=== PATIENT | male | born 1980 | race American Indian/Alaskan Native ===

== ENCOUNTER 2018-02-09 14:21 | Inpatient (IN) | payer OTHER ==
[2018-02-09] MEDS ORDERED: NACL 0.9% 500 ML 500 ML IV ONE (14:33)
[2018-02-09] MEDS ORDERED: NACL 0.9% 1000 ML 2,000 ML ONE (14:41)
[2018-02-09 15:07] LABS: INR 1.05 (0.87-1.13)
[2018-02-09] MEDS ORDERED: TYLENOL ONE (15:10)
[2018-02-09 15:12] LABS: Alanine Aminotransferase 12 units/L (7-56); Albumin 3.8 g/dL (3.9-5); BUN/Creatinine Ratio 15; Blood Urea Nitrogen 17 mg/dL (9-20); Calcium 8.7 mg/dL (8.4-10.2); Hemolysis Index 18
[2018-02-09] MEDS ORDERED: TYLENOL PO ONE ×2 (15:18→20:27)
[2018-02-09] MEDS ORDERED: NACL 0.9% 1000 ML 1,000 ML IV ONE (15:19)
[2018-02-09] MEDS ORDERED: ZOFRAN IV ONE (15:31)
[2018-02-09] MEDS ORDERED: SUBLIMAZE IV ONE (15:31)
--- NOTE | 2018-02-09 15:38 | Emergency Department Report ---
HPI - General Chief Complaint: Fever Time Seen by Provider: 02/09/18 15:17 - HPI HPI: Room 26 The patient is a 37-year-old male presenting with a chief complaint of abdominal pain and diarrhea. The patient states he was in his usual state of health until yesterday afternoon when he developed lower abdominal pain patient states he pulled his car over and into a [employer] parking lot and thinks he "passed out." The patient states he did not regain consciousness until this afternoon. The patient states when he awakened in his car he noticed his urine incontinent of stool as it was everywhere. The patient states she's been having frequent diarrhea and intermittent diffuse abdominal pain. Patient denies any history of fever nausea or vomiting. The patient gives his pain a score of 13/10. Patient denies recent antibiotic use Location: Abdomen, gastrointestinal system Duration: [See above] Quality: "Horrible" Severity: 13/10 Modifying factors: [see above] Context: [see above] Mode of transportation: [not driving] ED Past Medical Hx - Past Medical History Previous Medical History?: Yes Hx HIV: Yes (last CD4 626 early 2018) - Surgical History Past Surgical History?: No Hx Appendectomy: Yes - Family History Family history: no significant - Social History Smoking Status: Never Smoker Substance Use Type: None (denies illicit drug use) - Medications Home Medications: Home Medications Medication Instructions Recorded Confirmed Last Taken Type Darunavir/Cobicistat [Prezcobix 1 each PO DAILY 02/09/18 02/09/18 Unknown History 800 mg-150 mg Tablet] Emtricitabine/Tenofov Alafenam 1 each PO DAILY 02/09/18 02/09/18 Unknown History [Descovy 200-25 mg Tablet] Ergocalciferol [Vitamin D2] 1 cap PO QWEEK 02/09/18 02/09/18 Unknown History Isoniazid 300 mg PO QDAY 02/09/18 02/09/18 Unknown History Pyridoxine [Vitamin B-6] 50 mg PO DAILY 02/09/18 02/09/18 Unknown History ED Review of Systems ROS: Stated complaint: ABD PAIN/DIARRHEA Other details as noted in HPI Constitutional: fever Gastrointestinal: abdominal pain, diarrhea. denies: nausea, vomiting Physical Exam - Physical Exam Vital Signs: Vital Signs 02/09/18 14:30 Temperature 102.5 F H Pulse Rate 125 H Respiratory 20 Rate Blood Pressure 119/65 O2 Sat by Pulse 98 Oximetry Physical Exam: GENERAL: The patient is well-developed well-nourished male lying on stretcher not appearing to be in acute distress. Foul/sour odor in room HEENT: Normocephalic. Atraumatic. Extraocular motions are intact. Patient has moist mucous membranes. NECK: Supple. Trachea midline CHEST/LUNGS: Clear to auscultation. There is no respiratory distress noted. HEART/CARDIOVASCULAR: Regular. There is no tachycardia. There is no gallop rub or murmur. ABDOMEN: Abdomen is soft, nontender. Patient has hyperactive bowel sounds. There is no abdominal distention. SKIN: There is no rash. There is no edema. There is no diaphoresis. NEURO: The patient is awake, alert, and oriented. The patient is cooperative. The patient has normal speech MUSCULOSKELETAL: There is no evidence of acute injury. ED Course Vital Signs 02/09/18 14:30 Temperature 102.5 F H Pulse Rate 125 H Respiratory 20 Rate Blood Pressure 119/65 O2 Sat by Pulse 98 Oximetry ED Medical Decision Making - Lab Data Result diagrams: 02/09/18 15:25 02/09/18 14:44 Laboratory Tests 02/09/18 02/09/18 02/09/18 14:44 14:44 14:44 WBC RBC Hgb Hct MCV MCH MCHC RDW Plt Count Lymph % (Auto) Brule % (Auto) Eos % (Auto) Baso % (Auto) Lymph # Brule # Eos # Baso # Seg Neutrophils % Seg Neutrophils # PT 14.3 INR 1.05 VBG pH Sodium 136 L Potassium 3.4 L Chloride 98.7 Carbon Dioxide 22 Anion Gap 19 BUN 17 Creatinine 1.1 Estimated GFR > 60 BUN/Creatinine Ratio 15 Glucose 100 Lactic Acid 2.00 Calcium 8.7 Total Bilirubin 1.00 AST 16 ALT 12 Alkaline Phosphatase 50 Total Protein 7.2 Albumin 3.8 L Albumin/Globulin Ratio 1.1 02/09/18 02/09/18 02/09/18 14:44 15:25 15:29 WBC 7.3 RBC 4.19 Hgb 11.8 Hct 36.1 MCV 86 MCH 28 MCHC 33 RDW 12.8 L Plt Count 223 Lymph % (Auto) Construction Project Coordinator Brule % (Auto) Construction Project Coordinator Eos % (Auto) Construction Project Coordinator Baso % (Auto) Construction Project Coordinator Lymph # Construction Project Coordinator Brule # Construction Project Coordinator Eos # Construction Project Coordinator Baso # Construction Project Coordinator Seg Neutrophils % Construction Project Coordinator Seg Neutrophils # Construction Project Coordinator PT INR VBG pH 7.419 Sodium Potassium Chloride Carbon Dioxide Anion Gap BUN Creatinine Estimated GFR BUN/Creatinine Ratio Glucose Lactic Acid 2.00 Calcium Total Bilirubin AST ALT Alkaline Phosphatase Total Protein Albumin Albumin/Globulin Ratio - Radiology Data Radiology results: report reviewed (CT abdomen and pelvis), image reviewed (CT abdomen and pelvis) [facility] [address] [id number] Cat Scan Report Signed Patient: GENET MENON MR#: [id number] : 1980 Acct:[id number] Age/Sex: 37 / M ADM Date: 02/09/18 Loc: ED Attending Dr: Ordering Physician: MAXX GAMBOA MD Date of Service: 02/09/18 Procedure(s): CT abdomen pelvis w con Accession Number(s): [id number] cc: MAXX GAMBOA MD FINAL REPORT EXAM: CT ABDOMEN PELVIS W CON HISTORY: diffuse abdominal pain, fever, diarrhea TECHNIQUE: CT examination of the ABDOMEN after IV contrast CT examination of the PELVIS after IV contrast PRIORS: None. FINDINGS: Smoothly marginated hypodense right and left hepatic lobe lesions are nonspecific and statistically most likely reflect cysts and/or hemangiomas. They are too small to characterize. Normal-appearing gallbladder, adrenals, pancreas, and spleen. Intact normal caliber abdominal aorta and IVC. Normal-appearing kidneys and visible ureteral segments. Intact anterior abdominal wall. No retroperitoneal adenopathy. No evidence of mesenteric mass. Normal-appearing stomach and duodenum. Nonspecific prominence of gas, fluid, and caliber are noted in the small bowel loops of the abdomen and pelvis. No pelvic free fluid. Normal-appearing urinary bladder, prostate, and seminal vesicles. Distended rectum and sigmoid colon contain prominent gas and liquid stool compatible with history of diarrhea. The rectum and sigmoid colon are distended. Slight distention of the descending colon diffusely with moderate diffuse mural thickening, nonspecific. Prominent fluid in the descending colon also compatible with diarrhea. Prominent fluid, gas, and caliber throughout the transverse colon, ascending colon, and cecum. Normal-appearing terminal ileum. The appendix is not separately identified. No evidence of free air. IMPRESSION: Diffuse colonic abnormality with prominent gas and fluid as well as distention. Prominent fluid compatible with history of diarrhea. There is also prominent gas, fluid, and caliber throughout the small bowel. Prominent gas and caliber diffusely may reflect paralytic ileus. No definite obstructive pattern. Diffuse mural thickening of the descending colon may be edema, inflammation, infection, or ischemia. Differential includes inflammatory bowel disease Transcribed By: BAL Dictated By: MILIND KAT MD Electronically Authenticated By: MILIND KAT MD Signed Date/Time: 02/09/181637 DD/ 37 TD/TT: 02/09/181637 - Differential Diagnosis gastroenteritis, partial small bowel obstruction, cryptosporidium, C. diffi Critical care attestation.: If time is entered above; I have spent that time in minutes in the direct care of this critically ill patient, excluding procedure time. ED Disposition Clinical Impression: Diarrhea, Syncope, Fever, Colitis Disposition: OP ADMIT IP TO THIS HOSP Is pt being admited?: Yes Does the pt Need Aspirin: No Condition: Fair Instructions: Syncope (ED) Time of Disposition: 17:11 (hospitalist paged (Dr. Amador))
[2018-02-09 15:48] LABS: Hematocrit 36.1 % (35.5-45.6); Hemoglobin 11.8 gm/dl (11.8-15.2); Mean Corpuscular HGB Conc 33 % (32-34); Mean Corpuscular Hemoglobin 28 pg (28-32); Mean Corpuscular Volume 86 fl (84-94); Platelet Count 223 K/mm3 (140-440); Red Blood Count 4.19 M/mm3 (3.65-5.03); Red Cell Distribution Width 12.8 % (13.2-15.2)
--- NOTE | 2018-02-09 16:15 | XRay Report ---
FINAL REPORT EXAM: XR CHEST 1V AP HISTORY: possible Sepsis TECHNIQUE: One view examination of the chest PRIORS: None FINDINGS: There is no visible pulmonary consolidation, pleural effusion, or pneumothorax. Cardiac silhouette size is normal without vascular congestion. No visible acute displaced fracture in the regional skeleton. IMPRESSION: No evidence of acute cardiopulmonary disease in the visualized chest
--- NOTE | 2018-02-09 16:43 | Cat Scan Report ---
FINAL REPORT EXAM: CT ABDOMEN PELVIS W CON HISTORY: diffuse abdominal pain, fever, diarrhea TECHNIQUE: CT examination of the ABDOMEN after IV contrast CT examination of the PELVIS after IV contrast PRIORS: None. FINDINGS: Smoothly marginated hypodense right and left hepatic lobe lesions are nonspecific and statistically most likely reflect cysts and/or hemangiomas. They are too small to characterize. Normal-appearing gallbladder, adrenals, pancreas, and spleen. Intact normal caliber abdominal aorta and IVC. Normal-appearing kidneys and visible ureteral segments. Intact anterior abdominal wall. No retroperitoneal adenopathy. No evidence of mesenteric mass. Normal-appearing stomach and duodenum. Nonspecific prominence of gas, fluid, and caliber are noted in the small bowel loops of the abdomen and pelvis. No pelvic free fluid. Normal-appearing urinary bladder, prostate, and seminal vesicles. Distended rectum and sigmoid colon contain prominent gas and liquid stool compatible with history of diarrhea. The rectum and sigmoid colon are distended. Slight distention of the descending colon diffusely with moderate diffuse mural thickening, nonspecific. Prominent fluid in the descending colon also compatible with diarrhea. Prominent fluid, gas, and caliber throughout the transverse colon, ascending colon, and cecum. Normal-appearing terminal ileum. The appendix is not separately identified. No evidence of free air. IMPRESSION: Diffuse colonic abnormality with prominent gas and fluid as well as distention. Prominent fluid compatible with history of diarrhea. There is also prominent gas, fluid, and caliber throughout the small bowel. Prominent gas and caliber diffusely may reflect paralytic ileus. No definite obstructive pattern. Diffuse mural thickening of the descending colon may be edema, inflammation, infection, or ischemia. Differential includes inflammatory bowel disease
[2018-02-09] MEDS ORDERED: FLAGYL PO ONE (17:10)
[2018-02-09 18:02] LABS: Bilirubin,Urine NEG (Negative); Blood,Urine NEG (Negative); Color,Urine Yellow (Yellow); Mucus,Urine 1+ /HPF; Urobilinogen,Urine < 2.0 mg/dL (<2.0); WBC,Urine < 1.0 /HPF (0.0-6.0)
--- NOTE | 2018-02-09 23:21 | Event Note ---
Date: 02/09/18 See dictated H/p in reports
[2018-02-09] MEDS ORDERED: TYLENOL PO PRN (23:22)
[2018-02-09] MEDS ORDERED: PERCOCET 5/325 PO PRN (23:22)
[2018-02-09] MEDS ORDERED: ZOFRAN IV PRN (23:22)
[2018-02-10] MEDS: FLAGYL 500 MG/100 ML 500 MG/100 ML BAG IV SCH ×4 (01:01→22:43)
[2018-02-10] MEDS: MORPHINE IV PRN ×2 (02:59→10:25)
[2018-02-10] MEDS: D5NS 1,000 ML IV SCH ×2 (03:00→23:54)
--- NOTE | 2018-02-10 08:11 | History and Physical Report ---
CHIEF COMPLAINT: Abdominal pain and diarrhea for 2-3 days. HISTORY OF PRESENT ILLNESS: The patient is a 37-year-old -[place] male with history of HIV, last CD4 count being 626, comes in for lower abdominal pain and also loose watery stools. Also, the patient apparently passed out at a [employer]. Could not be verified. The patient has been having frequent diarrhea, loose stools for the last couple of days. The patient states the abdominal pain is about 10 on a scale of 1-10, sharp in nature. No fever, no chills. No nausea, no vomiting. Only diarrhea. No exacerbating or relieving factors. The pain is localized to the suprapubic, left lower and right lower quadrant. Crampy in nature. PAST MEDICAL HISTORY: Significant for HIV, last CD4 count apparently was 626 in early 2018. PAST SURGICAL HISTORY: Appendectomy. FAMILY HISTORY: No significant family history. SOCIAL HISTORY: Does not smoke. Denies any illicit drug use. CURRENT MEDICATIONS: Antiretrovirals plus isoniazid 300 mg once a day, Pyridoxine once a day, Prezcobix 800/150 one tablet a day and Descovy 200/25 once a day. REVIEW OF SYSTEMS: Significant for abdominal pain and diarrhea and apparent passing out. Otherwise, review of systems is essentially negative. A 14-point review of systems done. PHYSICAL EXAMINATION: GENERAL: A young male, cooperative during examination. VITAL SIGNS: Blood pressure is 108/67, pulse is 100, respirations are 15, temperature 99. HEENT: Unremarkable. Pupils equal and reactive. Tongue slightly dry. NECK: Supple, no lymphadenopathy, no thyromegaly. LUNGS: Clear to auscultation and percussion. Good air entry. CARDIOVASCULAR: S1, S2 heard. No gallop, no murmur, no rub. Apical impulse in left fifth intercostal space and midclavicular line. ABDOMEN: Soft, slightly tender in the suprapubic region. EXTREMITIES: Good pedal pulses. CENTRAL NERVOUS SYSTEM: Alert and oriented x 4, nonfocal exam. LABORATORY DATA: Significant for sodium of 136, potassium 3.4. White count is 7300, platelet count is 223,000. Albumin is 3.8. Urine specific gravity is 1.060. ASSESSMENT AND PLAN: 1. Acute gastroenteritis. The differential diagnosis are for regular viral gastroenteritis versus cryptosporidium, etc. in a HIV patient. Abdominal CAT scan revealed diffuse colonic adenomatous prominent gas and fluid as well as distention fluid. The differential includes inflammatory bowel disease. The patient started on IV Flagyl for possible colitis. The patient may need colonoscopy and biopsies to rule out cryptosporidiosis etc. 2. Malnutrition, mild. Dietitian consult requested. 3. Dehydration. IV fluids for now. Specific gravity of urine is 1.060. 4. Hypokalemia, supplemented. 5. Hyponatremia, mild. 6. HIV/AIDS. ID consult requested for further management. 7. Deep venous thrombosis prophylaxis, heparin 5000 q.12h. JOB# [id number] GURPREET/NTS
[2018-02-10] MEDS: KCL 10MEQ/100ML 10 MEQ/100 ML BAG IV SCH ×4 (08:26→17:09)
--- NOTE | 2018-02-10 09:43 | Gastroenterology Consultation ---
<TARIQ HASTINGS PRESTON - Last Filed: 02/10/18 09:49> History of Present Illness - Reason for Consult Consult date: 02/10/18 Diarrhea Requesting physician: SAJAN LAWTON - History of Present Illness Me. Vaughan is a 37 y/o male with hx of HIV, admitted with progressive diarrhea and subjective fever. This started 2 days ago after eating a hamburger and fries. No blood per stool. No abdominal pain currently , by report his pain was 10/10 on admission. Apparently the [facility]. He denies having any prior episodes. He is seen by an ID MD in [place] for treatment of HIV and has been on his medications. He reports his last CD4 count a "few months" ago noted at >[address]. W[address] notable for edema in the descending colon, dilated sigmoid, fluid filled. WBC per stool negative. FOBT +. Past History Past Medical History: other (HIV) Past Surgical History: appendectomy Social history: lives with family Family history: no significant family history Medications and Allergies Allergies Allergy/AdvReac Type Severity Reaction Status Date / Time No Known Allergies Allergy Verified 02/09/18 14:30 Home Medications Medication Instructions Recorded Confirmed Last Taken Type Darunavir/Cobicistat [Prezcobix 1 each PO DAILY 02/09/18 02/09/18 Unknown History 800 mg-150 mg Tablet] Emtricitabine/Tenofov Alafenam 1 each PO DAILY 02/09/18 02/09/18 Unknown History [Descovy 200-25 mg Tablet] Ergocalciferol [Vitamin D2] 1 cap PO QWEEK 02/09/18 02/09/18 Unknown History Isoniazid 300 mg PO QDAY 02/09/18 02/09/18 Unknown History Pyridoxine [Vitamin B-6] 50 mg PO DAILY 02/09/18 02/09/18 Unknown History Active Meds: Active Medications Acetaminophen (Tylenol) 650 mg PO Q4H PRN PRN Reason: Pain MILD(1-3)/Fever >100.5/WRIGHT Last Admin: 02/10/18 02:59 Dose: 650 mg Heparin Sodium (Porcine) (Heparin) 5,000 unit SUB-Q Q12HR JAY Dextrose/Sodium Chloride (D5ns) 1,000 mls @ 100 mls/hr IV DIRECT JAY Last Admin: 02/10/18 03:00 Dose: 100 mls/hr Metronidazole (Flagyl 500 Mg/100 Ml) 500 mg in 100 mls @ 100 mls/hr IV Q8HR JAY ; Protocol Last Admin: 02/10/18 06:24 Dose: 100 mls/hr Potassium Chloride (Kcl 10meq/100ml) 10 meq in 100 mls @ 100 mls/hr IV Q1H JAY Stop: 02/10/18 10:59 Last Admin: 02/10/18 08:26 Dose: 100 mls/hr Levofloxacin/Dextrose (Levaquin 500mg/100ml) 500 mg in 100 mls @ 100 mls/hr IV Q24HR JAY; Protocol Morphine Sulfate (Morphine) 2 mg IV Q4H PRN PRN Reason: Pain, Moderate (4-6) Last Admin: 02/10/18 02:59 Dose: 2 mg Ondansetron HCl (Zofran) 4 mg IV Q8H PRN PRN Reason: Nausea And Vomiting Oxycodone/Acetaminophen (Percocet 5/325) 1 tab PO Q6H PRN PRN Reason: Pain, Moderate (4-6) Sodium Chloride (Sodium Chloride Flush Syringe 10 Ml) 10 ml IV BID JAY Sodium Chloride (Sodium Chloride Flush Syringe 10 Ml) 10 ml IV PRN PRN PRN Reason: LINE FLUSH Review of Systems - Review of Systems All systems: negative Constitutional: fever, fatigue, weakness Gastrointestinal: abdominal pain, nausea, vomiting Exam - Constitutional Vital Signs: Temp Pulse Resp BP Pulse Ox 99 F 91 H 20 111/66 99 02/10/18 05:06 02/10/18 07:00 02/10/18 07:00 02/10/18 07:00 02/10/18 03:11 General appearance: no acute distress - EENT Eyes: EOM intact ENT: hearing intact - Neck Neck: supple - Respiratory Respiratory: bilateral: CTA - Cardiovascular Rhythm: regular Heart Sounds: Present: S1 & S2 Extremities: No edema - Gastrointestinal General gastrointestinal: Present: soft, tender, normal bowel sounds - Integumentary Integumentary: Present: warm, dry - Neurologic Neurological: alert and oriented x3 - Psychiatric Psychiatric: appropriate mood/affect, cooperative - Labs CBC & Chem 7: 02/09/18 15:25 02/09/18 14:44 Lab Results: Laboratory Results - last 24 hr 02/09/18 02/09/18 02/09/18 14:44 14:44 14:44 WBC RBC Hgb Hct MCV MCH MCHC RDW Plt Count Lymph % (Auto) Murray % (Auto) Eos % (Auto) Baso % (Auto) Lymph # Murray # Eos # Baso # Seg Neutrophils % Seg Neutrophils # PT 14.3 INR 1.05 VBG pH Sodium 136 L Potassium 3.4 L Chloride 98.7 Carbon Dioxide 22 Anion Gap 19 BUN 17 Creatinine 1.1 Estimated GFR > 60 BUN/Creatinine Ratio 15 Glucose 100 Hemoglobin A1c Lactic Acid 2.00 Calcium 8.7 Total Bilirubin 1.00 AST 16 ALT 12 Alkaline Phosphatase 50 Total Protein 7.2 Albumin 3.8 L Albumin/Globulin Ratio 1.1 Urine Color Urine Turbidity Urine pH Ur Specific [place] Urine Protein Urine Glucose (UA) Urine Ketones Urine Blood Urine Nitrite Urine Bilirubin Urine Urobilinogen Ur Leukocyte Esterase Urine WBC (Auto) Urine RBC (Auto) U Epithel Cells (Auto) Urine Mucus 02/09/18 02/09/18 02/09/18 14:44 15:25 15:29 WBC 7.3 RBC 4.19 Hgb 11.8 Hct 36.1 MCV 86 MCH 28 MCHC 33 RDW 12.8 L Plt Count 223 Lymph % (Auto) [employer] [place] % (Auto) [employer] Eos % (Auto) [employer] Baso % (Auto) [employer] Cook Lymph # [employer] Cook Murray # [employer] Cook Eos # Bro[employer] Or Cook Baso # Bro[employer] Cook Seg Neutrophils % [employer] Cook Seg Neutrophils # Bro[employer] Or Cook PT INR VBG pH 7.419 Sodium Potassium Chloride Carbon Dioxide Anion Gap BUN Creatinine Estimated GFR BUN/Creatinine Ratio Glucose Hemoglobin A1c Lactic Acid 2.00 Calcium Total Bilirubin AST ALT Alkaline Phosphatase Total Protein Albumin Albumin/Globulin Ratio Urine Color Urine Turbidity Urine pH Ur Specific [place] Urine Protein Urine Glucose (UA) Urine Ketones Urine Blood Urine Nitrite Urine Bilirubin Urine Urobilinogen Ur Leukocyte Esterase Urine WBC (Auto) Urine RBC (Auto) U Epithel Cells (Auto) Urine Mucus 02/09/18 02/09/18 02/09/18 17:49 23:44 Unknown WBC RBC Hgb Hct MCV MCH MCHC RDW Plt Count Lymph % (Auto) [place] % (Auto) Eos % (Auto) Baso % (Auto) Lymph # Murray # Eos # Baso # Seg Neutrophils % Seg Neutrophils # PT INR VBG pH Sodium Potassium Chloride Carbon Dioxide Anion Gap BUN Creatinine Estimated GFR BUN/Creatinine Ratio Glucose Hemoglobin A1c 4.3 Lactic Acid 1.40 Calcium Total Bilirubin AST ALT Alkaline Phosphatase Total Protein Albumin Albumin/Globulin Ratio Urine Color Yellow Urine Turbidity Clear Urine pH 5.0 Ur Specific [place] 1.060 H Urine Protein 30 mg/dl Urine Glucose (UA) Neg Urine Ketones Tr Urine Blood Neg Urine Nitrite Neg Urine Bilirubin Neg Urine Urobilinogen < 2.0 Ur Leukocyte Esterase Neg Urine WBC (Auto) < 1.0 Urine RBC (Auto) 2.0 U Epithel Cells (Auto) < 1.0 Urine Mucus 1+ Assessment and Plan 1. N/V/D/Abdominal pain 2. HIV -CT c/w edema and dilation of the descending/ sigmoid colon, fluid filled with ? appearance of IBD vs colitis. The patient denies in any prior episodes but states he had a prior colonoscopy several years ago that was normal (he is not able to tell me why he had the colonoscopy). -Agree with ABX-Currently on Levaquin and Flagyl - WBC 7.3, pt is noted to have a fever of 101.5 on admission- he is significantly tender on exam. -Differentials would include gastroenteritis vs other infection vs inflammatory vs ischemia. Doubt ischemia, favor infection. IBD may have to be ruled out if pt does not respond to ABX therapy although fecal WBC negative. -OK for clear liquids at this time -Stool studies for infection, including C diff.\\ -Stool culture pending, will add Cdiff and cryptosporidium -Check CD4 count and consider Consult to ID if needed. <HELENA MONTAÑO R - Last Filed: 02/10/18 11:28> Medications and Allergies Active Meds: Active Medications Acetaminophen (Tylenol) 650 mg PO Q4H PRN PRN Reason: Pain MILD(1-3)/Fever >100.5/WRIGHT Last Admin: 02/10/18 02:59 Dose: 650 mg Heparin Sodium (Porcine) (Heparin) 5,000 unit SUB-Q Q12HR JAY Last Admin: 02/10/18 10:28 Dose: Not Given Dextrose/Sodium Chloride (D5ns) 1,000 mls @ 100 mls/hr IV DIRECT JAY Last Admin: 02/10/18 03:00 Dose: 100 mls/hr Metronidazole (Flagyl 500 Mg/100 Ml) 500 mg in 100 mls @ 100 mls/hr IV Q8HR [facility] ; Protocol Last Admin: 02/10/18 06:24 Dose: 100 mls/hr Levofloxacin/Dextrose (Levaquin 500mg/100ml) 500 mg in 100 mls @ 100 mls/hr IV Q24HR [facility]; Protocol Last Admin: 02/10/18 10:27 Dose: 100 mls/hr Isoniazid (Isoniazid) 300 mg PO QDAY [facility] Miscellaneous Medication (Darunavir/Cobicistat [Prezcobix 800 Mg-150 Mg Tablet] ) 1 each PO DAILY [facility] Miscellaneous Medication (Emtricitabine/Tenofov Alafenam [Descovy 200-25 Mg Tablet]) 1 each PO DAILY [facility] Morphine Sulfate (Morphine) 2 mg IV Q4H PRN PRN Reason: Pain, Moderate (4-6) Last Admin: 02/10/18 10:25 Dose: 2 mg Ondansetron HCl (Zofran) 4 mg IV Q8H PRN PRN Reason: Nausea And Vomiting Last Admin: 02/10/18 10:27 Dose: 4 mg Oxycodone/Acetaminophen (Percocet 5/325) 1 tab PO Q6H PRN PRN Reason: Pain, Moderate (4-6) Pantoprazole Sodium (Protonix) 40 mg IV QDAY [facility] Stop: 02/11/18 10:59 Pantoprazole Sodium (Protonix) 40 mg PO DAILY [facility] Pyridoxine HCl (Vitamin B-6) 50 mg PO DAILY [facility] Sodium Chloride (Sodium Chloride Flush Syringe 10 Ml) 10 ml IV BID [facility] Last Admin: 02/10/18 10:28 Dose: 10 ml Sodium Chloride (Sodium Chloride Flush Syringe 10 Ml) 10 ml IV PRN PRN PRN Reason: LINE FLUSH Exam - Constitutional Vital Signs: Temp Pulse Resp BP Pulse Ox 99 F 91 H 18 111/66 99 02/10/18 05:06 02/10/18 07:00 02/10/18 10:25 02/10/18 07:00 02/10/18 03:11 - Labs CBC & Chem 7: 02/10/18 09:45 02/10/18 09:45 Lab Results: Laboratory Results - last 24 hr 02/09/18 02/09/18 02/09/18 14:44 14:44 14:44 WBC RBC Hgb Hct MCV MCH MCHC RDW Plt Count Lymph % (Auto) Murray % (Auto) Eos % (Auto) Baso % (Auto) Lymph # Murray # Eos # Baso # Seg Neutrophils % Seg Neutrophils # PT 14.3 INR 1.05 VBG pH Sodium 136 L Potassium 3.4 L Chloride 98.7 Carbon Dioxide 22 Anion Gap 19 BUN 17 Creatinine 1.1 Estimated GFR > 60 BUN/Creatinine Ratio 15 Glucose 100 Hemoglobin A1c Lactic Acid 2.00 Calcium 8.7 Magnesium Total Bilirubin 1.00 AST 16 ALT 12 Alkaline Phosphatase 50 Total Protein 7.2 Albumin 3.8 L Albumin/Globulin Ratio 1.1 Urine Color Urine Turbidity Urine pH Ur Specific [place] Urine Protein Urine Glucose (UA) Urine Ketones Urine Blood Urine Nitrite Urine Bilirubin Urine Urobilinogen Ur Leukocyte Esterase Urine WBC (Auto) Urine RBC (Auto) U Epithel Cells (Auto) Urine Mucus 02/09/18 02/09/18 02/09/18 14:44 15:25 15:29 WBC 7.3 RBC 4.19 Hgb 11.8 Hct 36.1 MCV 86 MCH 28 MCHC 33 RDW 12.8 L Plt Count 223 Lymph % (Auto) [employer] [place] % (Auto) [employer] Eos % (Auto) [employer] Baso % (Auto) [employer] Cook Lymph # [employer] Cook Murray # [employer] Cook Eos # [employer] Cook Baso # [employer] Cook Seg Neutrophils % [employer] Cook Seg Neutrophils # [employer] Cook PT INR VBG pH 7.419 Sodium Potassium Chloride Carbon Dioxide Anion Gap BUN Creatinine Estimated GFR BUN/Creatinine Ratio Glucose Hemoglobin A1c Lactic Acid 2.00 Calcium Magnesium Total Bilirubin AST ALT Alkaline Phosphatase Total Protein Albumin Albumin/Globulin Ratio Urine Color Urine Turbidity Urine pH Ur Specific [place] Urine Protein Urine Glucose (UA) Urine Ketones Urine Blood Urine Nitrite Urine Bilirubin Urine Urobilinogen Ur Leukocyte Esterase Urine WBC (Auto) Urine RBC (Auto) U Epithel Cells (Auto) Urine Mucus 02/09/18 02/09/18 02/09/18 17:49 23:44 Unknown WBC RBC Hgb Hct MCV MCH MCHC RDW Plt Count Lymph % (Auto) Murray % (Auto) Eos % (Auto) Baso % (Auto) Lymph # Murray # Eos # Baso # Seg Neutrophils % Seg Neutrophils # PT INR VBG pH Sodium Potassium Chloride Carbon Dioxide Anion Gap BUN Creatinine Estimated GFR BUN/Creatinine Ratio Glucose Hemoglobin A1c 4.3 Lactic Acid 1.40 Calcium Magnesium Total Bilirubin AST ALT Alkaline Phosphatase Total Protein Albumin Albumin/Globulin Ratio Urine Color Yellow Urine Turbidity Clear Urine pH 5.0 Ur Specific [place] 1.060 H Urine Protein 30 mg/dl Urine Glucose (UA) Neg Urine Ketones Tr Urine Blood Neg Urine Nitrite Neg Urine Bilirubin Neg Urine Urobilinogen < 2.0 Ur Leukocyte Esterase Neg Urine WBC (Auto) < 1.0 Urine RBC (Auto) 2.0 U Epithel Cells (Auto) < 1.0 Urine Mucus 1+ 02/10/18 02/10/18 02/10/18 09:45 09:45 09:45 WBC 4.7 RBC 4.28 Hgb 11.7 L Hct 37.1 MCV 87 MCH 27 L MCHC 32 RDW 12.7 L Plt Count 203 Lymph % (Auto) 16.7 Murray % (Auto) 15.9 H Eos % (Auto) 0.0 Baso % (Auto) 0.3 Lymph # 0.8 L Murray # 0.8 Eos # 0.0 Baso # 0.0 Seg Neutrophils % 67.1 Seg Neutrophils # 3.2 PT INR VBG pH Sodium 138 Potassium 4.1 D Chloride 103.6 Carbon Dioxide 22 Anion Gap 17 BUN 11 Creatinine 0.9 Estimated GFR > 60 BUN/Creatinine Ratio 12 Glucose 98 Hemoglobin A1c Lactic Acid Calcium 8.6 Magnesium 2.00 Total Bilirubin 1.10 AST 14 ALT 11 Alkaline Phosphatase 46 Total Protein 6.6 Albumin 3.3 L Albumin/Globulin Ratio 1.0 Urine Color Urine Turbidity Urine pH Ur Specific [place] Urine Protein Urine Glucose (UA) Urine Ketones Urine Blood Urine Nitrite Urine Bilirubin Urine Urobilinogen Ur Leukocyte Esterase Urine WBC (Auto) Urine RBC (Auto) U Epithel Cells (Auto) Urine Mucus Assessment and Plan Pt seen and examined. Most c/w infectious colitis, possibly Salmonella, etc. Agree with plan as noted.
[2018-02-10 10:02] LABS: Basophils % (Auto) 0.3 % (0.0-1.8); Hematocrit 37.1 % (35.5-45.6); Hemoglobin 11.7 gm/dl (11.8-15.2); Lymphocytes # (Auto) 0.8 K/mm3 (1.2-5.4); Lymphocytes % (Auto) 16.7 % (13.4-35.0); Mean Corpuscular HGB Conc 32 % (32-34); Mean Corpuscular Hemoglobin 27 pg (28-32); Mean Corpuscular Volume 87 fl (84-94); Monocytes # (Auto) 0.8 K/mm3 (0.0-0.8); Monocytes % (Auto) 15.9 % (0.0-7.3); Platelet Count 203 K/mm3 (140-440); Red Blood Count 4.28 M/mm3 (3.65-5.03); Red Cell Distribution Width 12.7 % (13.2-15.2)
[2018-02-10 10:27] LABS: Alanine Aminotransferase 11 units/L (7-56); Albumin 3.3 g/dL (3.9-5); BUN/Creatinine Ratio 12; Blood Urea Nitrogen 11 mg/dL (9-20); Calcium 8.6 mg/dL (8.4-10.2); Hemolysis Index 9
[2018-02-10] MEDS: LEVAQUIN 500MG/100ML 500 MG/100 ML BAG IV SCH (10:27)
[2018-02-10] MEDS: SODIUM CHLORIDE FLUSH SYRINGE 10 ML IV SCH ×2 (10:28→22:43)
[2018-02-10] MEDS: HEPARIN SUB-Q SCH ×2 (10:28→22:44)
[2018-02-10] MEDS ORDERED: NON-FORMULARY (Emtricitabine/Tenofov Alafenam [Descovy 200-25 Mg Tablet] 1 EACH) PO SCH (10:30)
[2018-02-10] MEDS ORDERED: NON-FORMULARY (Darunavir/Cobicistat [Prezcobix 800 Mg-150 Mg Tablet] 1 EACH) PO SCH (10:30)
--- NOTE | 2018-02-10 10:38 | Progress Note ---
Assessment and Plan Assessment and plan: Diarrhea, probably sec to colitis (infection versus inflammation) -cont iv antibiotics -stool studies pending -GI following H/o HIV -cont HAART therapy -ID consulted Hypokalemia -resolved Disp: d/c pt when medically stable History Interval history: Patient continues to have diarrhea with generalized abdominal pain Hospitalist Physical - Constitutional Vitals: Temp Pulse Resp BP Pulse Ox 99 F 91 H 18 111/66 99 02/10/18 05:06 02/10/18 07:00 02/10/18 10:25 02/10/18 07:00 02/10/18 03:11 General appearance: Present: no acute distress - EENT Eyes: Present: PERRL, EOM intact ENT: hearing intact, clear oral mucosa - Neck Neck: Present: supple - Respiratory Respiratory effort: normal Respiratory: bilateral: CTA - Cardiovascular Rhythm: regular Heart Sounds: Present: S1 & S2 - Extremities Extremities: No edema - Abdominal General gastrointestinal: soft, tender (generalized), non-distended, normal bowel sounds - Integumentary Integumentary: Present: warm, dry - Neurologic Neurologic: CNII-XII intact Results - Labs CBC & Chem 7: 02/10/18 09:45 02/10/18 09:45 Labs: Laboratory Last Values WBC 4.7 K/mm3 (4.5-11.0) 02/10/18 09:45 RBC 4.28 M/mm3 (3.65-5.03) 02/10/18 09:45 Hgb 11.7 gm/dl (11.8-15.2) L 02/10/18 09:45 Hct 37.1 % (35.5-45.6) 02/10/18 09:45 MCV 87 fl (84-94) 02/10/18 09:45 MCH 27 pg (28-32) L 02/10/18 09:45 MCHC 32 % (32-34) 02/10/18 09:45 RDW 12.7 % (13.2-15.2) L 02/10/18 09:45 Plt Count 203 K/mm3 (140-440) 02/10/18 09:45 Lymph % (Auto) 16.7 % (13.4-35.0) 02/10/18 09:45 [place] % (Auto) 15.9 % (0.0-7.3) H 02/10/18 09:45 Eos % (Auto) 0.0 % (0.0-4.3) 02/10/18 09:45 Baso % (Auto) 0.3 % (0.0-1.8) 02/10/18 09:45 Lymph # 0.8 K/mm3 (1.2-5.4) L 02/10/18 09:45 [place] # 0.8 K/mm3 (0.0-0.8) 02/10/18 09:45 Eos # 0.0 K/mm3 (0.0-0.4) 02/10/18 09:45 Baso # 0.0 K/mm3 (0.0-0.1) 02/10/18 09:45 Seg Neutrophils % 67.1 % (40.0-70.0) 02/10/18 09:45 Seg Neutrophils # 3.2 K/mm3 (1.8-7.7) 02/10/18 09:45 PT 14.3 Sec. (12.2-14.9) 02/09/18 14:44 INR 1.05 (0.87-1.13) 02/09/18 14:44 VBG pH 7.419 (7.320-7.420) 02/09/18 14:44 Sodium 138 mmol/L (137-145) 02/10/18 09:45 Potassium 4.1 mmol/L (3.6-5.0) D 02/10/18 09:45 Chloride 103.6 mmol/L (98-107) 02/10/18 09:45 Carbon Dioxide 22 mmol/L (22-30) 02/10/18 09:45 Anion Gap 17 mmol/L 02/10/18 09:45 BUN 11 mg/dL (9-20) 02/10/18 09:45 Creatinine 0.9 mg/dL (0.8-1.5) 02/10/18 09:45 Estimated GFR > 60 ml/min 02/10/18 09:45 BUN/Creatinine Ratio 12 % 02/10/18 09:45 Glucose 98 mg/dL (75-100) 02/10/18 09:45 Hemoglobin A1c 4.3 % (4-6) 02/09/18 23:44 Lactic Acid 1.40 mmol/L (0.7-2.0) 02/09/18 17:49 Calcium 8.6 mg/dL (8.4-10.2) 02/10/18 09:45 Magnesium 2.00 mg/dL (1.7-2.3) 02/10/18 09:45 Total Bilirubin 1.10 mg/dL (0.1-1.2) 02/10/18 09:45 AST 14 units/L (5-40) 02/10/18 09:45 ALT 11 units/L (7-56) 02/10/18 09:45 Alkaline Phosphatase 46 units/L (35-129) 02/10/18 09:45 Total Protein 6.6 g/dL (6.3-8.2) 02/10/18 09:45 Albumin 3.3 g/dL (3.9-5) L 02/10/18 09:45 Albumin/Globulin Ratio 1.0 % 02/10/18 09:45 Urine Color Yellow (Yellow) 02/09/18 Unknown Urine Turbidity Clear (Clear) 02/09/18 Unknown Urine pH 5.0 (5.0-7.0) 02/09/18 Unknown Ur Specific [place] 1.060 (1.003-1.030) H 02/09/18 Unknown Urine Protein 30 mg/dl mg/dL (Negative) 02/09/18 Unknown Urine Glucose (UA) Neg mg/dL (Negative) 02/09/18 Unknown Urine Ketones Tr mg/dL (Negative) 02/09/18 Unknown Urine Blood Neg (Negative) 02/09/18 Unknown Urine Nitrite Neg (Negative) 02/09/18 Unknown Urine Bilirubin Neg (Negative) 02/09/18 Unknown Urine Urobilinogen < 2.0 mg/dL (<2.0) 02/09/18 Unknown Ur Leukocyte Esterase Neg (Negative) 02/09/18 Unknown Urine WBC (Auto) < 1.0 /HPF (0.0-6.0) 02/09/18 Unknown Urine RBC (Auto) 2.0 /HPF (0.0-6.0) 02/09/18 Unknown U Epithel Cells (Auto) < 1.0 /HPF (0-13.0) 02/09/18 Unknown Urine Mucus 1+ /HPF 02/09/18 Unknown
[2018-02-10] MEDS ORDERED: VANCOMYCIN PHARMACY TO DOSE IV SCH (15:00)
--- NOTE | 2018-02-10 15:04 | Consultation ---
History of Present Illness - Reason for Consult Consult date: 02/10/18 HIV, diarrhea Requesting physician: SAJAN LAWTON - History of Present Illness 37 y/o male with history of HIV infection diagnosed in 1999, follow-ups with Dr. 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 He ate a burger with sweet potato fries with a friend the night before. Nobody else is sick. He felt weak and noted severe cramps while driving and suddenly felt dizzy, pulled over and woke up in a pull of diarrhea. The patient states he was in his usual state of health until that day. The patient states he has been having frequent diarrhea and intermittent diffuse crampy abdominal pain. Patient denies any history of fever nausea or vomiting. The patient gives his pain a score of 10/10. Patient denies recent antibiotic use. He is homosexual and has 2 recent sexual partners uses condoms consistently. He last saw Dr. Anand a month ago, he does not remember his CD4 and viral load. In the ED, initial temperature was 102.5, heart rate 125, respiration 20, O2 sat 98, blood pressure 119/65. Initial white count 7.3. Hemoglobin 11.8. Platelets 223. Creatinine 1.1. Urinalysis was negative. CT abd showed diffuse colonic abnormality with prominent gas and fluid as well as distention. Prominent gas and caliber diffusely may reflect paralytic ileus. No definite obstructive pattern. Diffuse mural thickening of the descending colon may be edema, inflammation, infection, or ischemia. Microbiology: Blood cultures: 02/09 3 of 4 GPC in clusters Current Antimicrobials: Flagyl Levaquin Vancomycin INH Previous Antimicrobials: Past History Past Medical History: other (HIV) Past Surgical History: appendectomy Social history: lives with family Family history: no significant family history Medications and Allergies Allergies Allergy/AdvReac Type Severity Reaction Status Date / Time No Known Allergies Allergy Verified 02/09/18 14:30 Home Medications Medication Instructions Recorded Confirmed Last Taken Type Darunavir/Cobicistat [Prezcobix 1 each PO DAILY 02/09/18 02/09/18 Unknown History 800 mg-150 mg Tablet] Emtricitabine/Tenofov Alafenam 1 each PO DAILY 02/09/18 02/09/18 Unknown History [Descovy 200-25 mg Tablet] Ergocalciferol [Vitamin D2] 1 cap PO QWEEK 02/09/18 02/09/18 Unknown History Isoniazid 300 mg PO QDAY 02/09/18 02/09/18 Unknown History Pyridoxine [Vitamin B-6] 50 mg PO DAILY 02/09/18 02/09/18 Unknown History Active Meds: Active Medications Acetaminophen (Tylenol) 650 mg PO Q4H PRN PRN Reason: Pain MILD(1-3)/Fever >100.5/WRIGHT Last Admin: 02/10/18 02:59 Dose: 650 mg Heparin Sodium (Porcine) (Heparin) 5,000 unit SUB-Q Q12HR JAY Last Admin: 02/10/18 10:28 Dose: Not Given Dextrose/Sodium Chloride (D5ns) 1,000 mls @ 100 mls/hr IV DIRECT JAY Last Admin: 02/10/18 03:00 Dose: 100 mls/hr Metronidazole (Flagyl 500 Mg/100 Ml) 500 mg in 100 mls @ 100 mls/hr IV Q8HR JAY ; Protocol Last Admin: 02/10/18 06:24 Dose: 100 mls/hr Levofloxacin/Dextrose (Levaquin 500mg/100ml) 500 mg in 100 mls @ 100 mls/hr IV Q24HR JAY; Protocol Last Admin: 02/10/18 10:27 Dose: 100 mls/hr Vancomycin HCl 1,500 mg/ (Sodium Chloride) 515 mls @ 333.333 mls/hr IV ONCE ONE Stop: 02/10/18 17:32 Isoniazid (Isoniazid) 300 mg PO QDAY [facility] Miscellaneous Medication (Darunavir/Cobicistat [Prezcobix 800 Mg-150 Mg Tablet] ) 1 each PO DAILY [facility] Miscellaneous Medication (Emtricitabine/Tenofov Alafenam [Descovy 200-25 Mg Tablet]) 1 each PO DAILY JAY Morphine Sulfate (Morphine) 2 mg IV Q4H PRN PRN Reason: Pain, Moderate (4-6) Last Admin: 02/10/18 10:25 Dose: 2 mg Ondansetron HCl (Zofran) 4 mg IV Q8H PRN PRN Reason: Nausea And Vomiting Last Admin: 02/10/18 10:27 Dose: 4 mg Oxycodone/Acetaminophen (Percocet 5/325) 1 tab PO Q6H PRN PRN Reason: Pain, Moderate (4-6) Pantoprazole Sodium (Protonix) 40 mg IV QDAY JAY Stop: 02/11/18 10:59 Pantoprazole Sodium (Protonix) 40 mg PO DAILY JAY Pyridoxine HCl (Vitamin B-6) 50 mg PO DAILY JAY Sodium Chloride (Sodium Chloride Flush Syringe 10 Ml) 10 ml IV BID JAY Last Admin: 02/10/18 10:28 Dose: 10 ml Sodium Chloride (Sodium Chloride Flush Syringe 10 Ml) 10 ml IV PRN PRN PRN Reason: LINE FLUSH Vancomycin HCl (Vancomycin Pharmacy To Dose) 1 each IV PKCONSULT JAY; Protocol Physical Examination - Physical Exam Narrative exam: General appearance: Alert in NAD, conversant Eyes: anicteric sclerae, moist conjunctivae; no lid-lag; PERRLA HENT: Atraumatic; oropharynx clear with moist mucous membranes and no mucosal ulcerations/no oral thrush; normal hard and soft palate. Normal external ears. Neck: Trachea midline; supple, no thyromegaly or lymphadenopathy Lungs: CTA, with normal respiratory effort and no intercostal retractions CV: RRR, no murmurs Abdomen: Soft, tender diffusely Extremities: No peripheral edema or extremity lymphadenopathy Skin: Normal temperature, turgor and texture; no rash, ulcers or subcutaneous nodules Psych: Appropriate affect, alert and oriented to person, place and time. Neuro: alert and oriented x 3. Moving all extermities Lines: No CVL / PICC - Constitutional Vitals: Vital Signs Temp Pulse Resp BP Pulse Ox 99 F 91 H 18 111/66 99 02/10/18 05:06 02/10/18 07:00 02/10/18 10:25 02/10/18 07:00 02/10/18 03:11 Temperature -Last 24 Hours Temperature 99 F Temperature 101.5 F Temperature 101.2 F Temperature 102.4 F Temperature 101.6 F Results - Labs CBC & Chem 7: 02/10/18 09:45 02/10/18 09:45 Labs: Abnormal lab results 02/09/18 02/09/18 02/09/18 Range/Units 14:44 15:25 Unknown Hgb (11.8-15.2) gm/dl MCH (28-32) pg RDW 12.8 L (13.2-15.2) % Hill % (Auto) (0.0-7.3) % Lymph # (1.2-5.4) K/mm3 Sodium 136 L (137-145) mmol/L Potassium 3.4 L (3.6-5.0) mmol/L Albumin 3.8 L (3.9-5) g/dL Ur Specific [place] 1.060 H (1.003-1.030) 02/10/18 02/10/18 Range/Units 09:45 09:45 Hgb 11.7 L (11.8-15.2) gm/dl MCH 27 L (28-32) pg RDW 12.7 L (13.2-15.2) % Hill % (Auto) 15.9 H (0.0-7.3) % Lymph # 0.8 L (1.2-5.4) K/mm3 Sodium (137-145) mmol/L Potassium (3.6-5.0) mmol/L Albumin 3.3 L (3.9-5) g/dL Ur Specific [place] (1.003-1.030) Assessment and Plan Assessment: 1) Sepsis: Present on admission, manifested by fever, tachycardia. Etiology most likely enterocolitis +/- bacteremia. 2) Acute enterocolitis: bacterial? DDx. EH E coli, Amebiasis, Salmonella, Shigella -CT abd showed diffuse colonic abnormality with prominent gas and fluid as well as distention. Prominent gas and caliber diffusely may reflect paralytic ileus. No definite obstructive pattern. Diffuse mural thickening of the descending colon may be edema, inflammation, infection, or ischemia. 3) Syncope episode ? 4) HIV infection: diagnosed in 1999, follow-ups with Dr. Anand, currently on Descovy/prescovix 5) Presumed latent TB on INH/VitB6 6) Presumed GPC in cluster bacteremia? real, unclear source Plan: -follow-up blood cultures -repeat blood cultures in 48h -continue levaquin, flagyl and vancomycin -continue Descovy/prescovix -obtain stool for cultures and C diff -obtain CD4/VL -if real bacteremia will get a TTE Thank you for your consultation, will follow up with you. Gabbie Meadows MD Infectious Diseases Specialist [facility] M [phone] O [phone]
[2018-02-10] MEDS ORDERED: VANCOMYCIN 1,500 MG in NACL 0.9% 500 ML 500 ML IV ONE (16:00)
[2018-02-10] MEDS: PROTONIX IV SCH (17:10)
[2018-02-10] MEDS: VITAMIN B-6 PO SCH (17:10)
[2018-02-10] MEDS: ISONIAZID PO SCH (17:17)
[2018-02-11] MEDS: FLAGYL 500 MG/100 ML 500 MG/100 ML BAG IV SCH ×2 (05:11→18:39)
[2018-02-11] MEDS: VANCOMYCIN 1,500 MG in NACL 0.9% 500 ML 500 ML IV SCH ×2 (05:11→19:58)
[2018-02-11 08:16] VITALS: BP 108/69
[2018-02-11] MEDS: VITAMIN B-6 PO SCH (09:32)
[2018-02-11] MEDS: HEPARIN SUB-Q SCH ×2 (09:33→21:34)
[2018-02-11] MEDS: PROTONIX IV SCH (09:33)
[2018-02-11] MEDS: ISONIAZID PO SCH (09:33)
[2018-02-11] MEDS: LEVAQUIN 500MG/100ML 500 MG/100 ML BAG IV SCH (09:33)
[2018-02-11] MEDS: SODIUM CHLORIDE FLUSH SYRINGE 10 ML IV SCH ×2 (10:39→22:34)
--- NOTE | 2018-02-11 10:48 | Gastroenterology Progress Note ---
Assessment and Plan GI: pt HIV + presents w/ n/v/abdominal pain - pt reports feeling better, bm's improved, nausea, vomiting stable - advance diet as tolerated - antibiotics per ID - no plans to scope from GI standpoint - pt wants to go home, ok to d/c from GI standpoint - will sign off, call if needed Subjective Date of service: 02/11/18 Interval history: - pt reports feeling better, diarrhea improving. Wants to go home. Irritated with staff waking him up Objective - Constitutional Vitals: Temp Pulse Resp BP Pulse Ox 98.6 F 90 20 108/69 96 02/11/18 07:16 02/11/18 07:16 02/11/18 07:16 02/11/18 07:16 02/11/18 07:16 General appearance: no acute distress - EENT Eyes: PERRL - Respiratory Respiratory: negative: CTA - Cardiovascular Rhythm: regular Heart Sounds: Present: S1 & S2 - Gastrointestinal General gastrointestinal: Present: soft, non-tender, non-distended - Labs CBC & Chem 7: 02/10/18 09:45 02/10/18 09:45
--- NOTE | 2018-02-11 12:55 | Progress Note ---
Assessment and Plan Assessment and plan: Diarrhea, probably sec to infectious colitis -Improving. -cont iv antibiotics -stool studies pending. -no further evaluation per GI Sepsis, present on admission -Blood cultures positive for gram +ve, will f/u -Urine culture negative -Continue IV antibiotics -ID following H/o HIV/AIDS -cont HAART therapy Hypokalemia -resolved Disp: d/c pt when medically stable History Interval history: Pt has no new complaints. His diarrhea has improved. No nausea or vomiting. Hospitalist Physical - Constitutional Vitals: Temp Pulse Resp BP Pulse Ox 98.6 F 90 20 108/69 96 02/11/18 07:16 02/11/18 07:16 02/11/18 07:16 02/11/18 07:16 02/11/18 07:16 General appearance: Present: no acute distress - EENT Eyes: Present: PERRL, EOM intact ENT: hearing intact - Neck Neck: Present: supple - Respiratory Respiratory effort: normal Respiratory: bilateral: CTA - Cardiovascular Rhythm: regular Heart Sounds: Present: S1 & S2 - Extremities Extremities: No edema - Abdominal General gastrointestinal: soft, non-tender, normal bowel sounds - Neurologic Neurologic: CNII-XII intact Results - Labs CBC & Chem 7: 02/10/18 09:45 02/10/18 09:45 Labs: Laboratory Last Values WBC 4.7 K/mm3 (4.5-11.0) 02/10/18 09:45 RBC 4.28 M/mm3 (3.65-5.03) 02/10/18 09:45 Hgb 11.7 gm/dl (11.8-15.2) L 02/10/18 09:45 Hct 37.1 % (35.5-45.6) 02/10/18 09:45 MCV 87 fl (84-94) 02/10/18 09:45 MCH 27 pg (28-32) L 02/10/18 09:45 MCHC 32 % (32-34) 02/10/18 09:45 RDW 12.7 % (13.2-15.2) L 02/10/18 09:45 Plt Count 203 K/mm3 (140-440) 02/10/18 09:45 Lymph % (Auto) 16.7 % (13.4-35.0) 02/10/18 09:45 [place] % (Auto) 15.9 % (0.0-7.3) H 02/10/18 09:45 Eos % (Auto) 0.0 % (0.0-4.3) 02/10/18 09:45 Baso % (Auto) 0.3 % (0.0-1.8) 02/10/18 09:45 Lymph # 0.8 K/mm3 (1.2-5.4) L 02/10/18 09:45 [place] # 0.8 K/mm3 (0.0-0.8) 02/10/18 09:45 Eos # 0.0 K/mm3 (0.0-0.4) 02/10/18 09:45 Baso # 0.0 K/mm3 (0.0-0.1) 02/10/18 09:45 Seg Neutrophils % 67.1 % (40.0-70.0) 02/10/18 09:45 Seg Neutrophils # 3.2 K/mm3 (1.8-7.7) 02/10/18 09:45 PT 14.3 Sec. (12.2-14.9) 02/09/18 14:44 INR 1.05 (0.87-1.13) 02/09/18 14:44 VBG pH 7.419 (7.320-7.420) 02/09/18 14:44 Sodium 138 mmol/L (137-145) 02/10/18 09:45 Potassium 4.1 mmol/L (3.6-5.0) D 02/10/18 09:45 Chloride 103.6 mmol/L (98-107) 02/10/18 09:45 Carbon Dioxide 22 mmol/L (22-30) 02/10/18 09:45 Anion Gap 17 mmol/L 02/10/18 09:45 BUN 11 mg/dL (9-20) 02/10/18 09:45 Creatinine 0.9 mg/dL (0.8-1.5) 02/10/18 09:45 Estimated GFR > 60 ml/min 02/10/18 09:45 BUN/Creatinine Ratio 12 % 02/10/18 09:45 Glucose 98 mg/dL (75-100) 02/10/18 09:45 Hemoglobin A1c 4.3 % (4-6) 02/09/18 23:44 Lactic Acid 1.40 mmol/L (0.7-2.0) 02/09/18 17:49 Calcium 8.6 mg/dL (8.4-10.2) 02/10/18 09:45 Magnesium 2.00 mg/dL (1.7-2.3) 02/10/18 09:45 Total Bilirubin 1.10 mg/dL (0.1-1.2) 02/10/18 09:45 AST 14 units/L (5-40) 02/10/18 09:45 ALT 11 units/L (7-56) 02/10/18 09:45 Alkaline Phosphatase 46 units/L (35-129) 02/10/18 09:45 Total Protein 6.6 g/dL (6.3-8.2) 02/10/18 09:45 Albumin 3.3 g/dL (3.9-5) L 02/10/18 09:45 Albumin/Globulin Ratio 1.0 % 02/10/18 09:45 Urine Color Yellow (Yellow) 02/09/18 Unknown Urine Turbidity Clear (Clear) 02/09/18 Unknown Urine pH 5.0 (5.0-7.0) 02/09/18 Unknown Ur Specific [place] 1.060 (1.003-1.030) H 02/09/18 Unknown Urine Protein 30 mg/dl mg/dL (Negative) 02/09/18 Unknown Urine Glucose (UA) Neg mg/dL (Negative) 02/09/18 Unknown Urine Ketones Tr mg/dL (Negative) 02/09/18 Unknown Urine Blood Neg (Negative) 02/09/18 Unknown Urine Nitrite Neg (Negative) 02/09/18 Unknown Urine Bilirubin Neg (Negative) 02/09/18 Unknown Urine Urobilinogen < 2.0 mg/dL (<2.0) 02/09/18 Unknown Ur Leukocyte Esterase Neg (Negative) 02/09/18 Unknown Urine WBC (Auto) < 1.0 /HPF (0.0-6.0) 02/09/18 Unknown Urine RBC (Auto) 2.0 /HPF (0.0-6.0) 02/09/18 Unknown U Epithel Cells (Auto) < 1.0 /HPF (0-13.0) 02/09/18 Unknown Urine Mucus 1+ /HPF 02/09/18 Unknown
[2018-02-11] MEDS: SODIUM CHLORIDE FLUSH SYRINGE 10 ML IV PRN ×2 (21:35→22:25)
[2018-02-12] MEDS ORDERED: FLAGYL 500 MG/100 ML 500 MG/100 ML BAG IV SCH (06:00)
[2018-02-12] MEDS: VANCOMYCIN 1,500 MG in NACL 0.9% 500 ML 500 ML IV SCH (06:52)
[2018-02-12] MEDS ORDERED: PROTONIX PO SCH (10:00)
--- NOTE | 2018-02-12 12:41 | Discharge Summary ---
Providers - Providers Date of Admission: 02/09/18 23:22 Date of discharge: 02/12/18 Attending physician: NEVAEH GONZALES 02/09/18 23:26 Consult to Physician [CONS] Routine Comment: Consulting Provider: SONI PERALES Physician Instructions: Reason For Exam: HIV and Diarrhea 02/10/18 06:44 Consult to Physician [CONS] Routine Comment: Consulting Provider: HELENA MONTAÑO Physician Instructions: Reason For Exam: Diarrhea in HIV patient 02/10/18 06:52 Consult to Dietitian/Nutrition [CONS] Routine Physician Instructions: Reason For Exam: Reason for Consult: Nutrition Recommendations Reason for Consult: Malnutrition Primary care physician: ELECTRICAL WIRER Hospitalization Condition: Fair Hospital course: Admission diagnosis: -Sepsis -Diarrhea -Hypokalemia -HIV/AIDS Final diagnosis: -Diarrhea, probably sec to infectious colitis -Sepsis with staph epidermidis bacteremia -Hypokalemia, resolved -Positive occult blood -HIV/AIDS Patient was admitted and placed on IV antibiotics with levofloxacin and Flagyl after blood and urine cultures were obtained, in addition to IV fluid. He also received potassium supplements for the hypokalemia with resolution. Stool was obtained for stool studies. For his other comorbidity, he was continued on his home medications. Thereafter, the blood cultures obtained came back positive for staph epidermidis, while the urine culture was negative. At that time, IV vancomycin was added. He was also evaluated by the chief petroleum engineer, who determined that he did not need further evaluation for his diarrhea. Subsequent plan was to follow up the pending test results in order to determine further management. However, the patient left AGAINST MEDICAL ADVICE Disposition: DC-07 LEFT AGAINST MED ADVICE Time spent for discharge: 25 minutes Core Measure Documentation - Palliative Care Palliative Care/ Comfort Measures: Not Applicable - Core Measures Any of the following diagnoses?: none Exam - Physical Exam Narrative exam: Patient was not examined before he left AGAINST MEDICAL ADVICE - Constitutional Vitals: Temp Pulse Resp BP Pulse Ox 98.6 F 90 20 108/69 96 02/11/18 07:16 02/11/18 07:16 02/11/18 07:16 02/11/18 07:16 02/11/18 07:16 Plan Follow up with: IRENE ABRAMS MD [Primary Care Provider] - 3-5 Days
[2018-02-14 18:02] LABS: CD4/CD8 Ratio 0.8 (0.86-5.00)
[2018-02-14 20:17] LABS: HIV-1 RNA QN PCR 3.85 Log cps/mL
== END 2018-02-12 07:45 | disposition left against medical advice (07) | DRG 976 ==
LOC: ED 14:21 → 3A 23:22
PROVIDERS: ADMIT Internal Medicine; ATTEND Internal Medicine
DX: B20 Human immunodeficiency virus [HIV] disease (principal); A41.1 Sepsis due to other specified staphylococcus; K52.9 Noninfective gastroenteritis and colitis, unspecified; R55 Syncope and collapse; Z23 Encounter for immunization; E87.6 Hypokalemia; Z53.21 Procedure and treatment not carried out due to patient leaving prior to being seen by health care provider
CPT/HCPCS: 36415; 71045; 74177; 80053; 81001; 82024; 82140; 82270; 82805; 83036; 83735; 85007; 85025; 85610; 87040; 87045; 87076; 87086; 87186; 87324; 87536; 93005; 93010; 96361; 96374; 96375; C9113; J1644; J1956; J2270; J2405; J3010; J3370; J3480; J7030; J7040; J7042; Q9967